=== PATIENT | male | born 1995 | race Caucasian/White ===

== ENCOUNTER 2020-05-12 15:33 | Emergency (ER) | payer SELFPAY ==
[~2020-05-12] VITALS: Ht 170.2 cm; Wt 70.0 kg
[2020-05-12] MEDS ORDERED: IBUPROFEN 600MG TABLET PO STA (15:48)
[2020-05-12] MEDS ORDERED: MAG-55 MT (16:39)
[2020-05-12] MEDS ORDERED: BENZ-16 MT (16:39)
[2020-05-12 17:21] VITALS: BP 150/73
== END 2020-05-12 17:22 | disposition home or self-care (01) ==
LOC: ER 15:33
DX: J02.9 Acute pharyngitis, unspecified (principal)
CPT/HCPCS: 71045; 99283